=== PATIENT | male | born 1990 | race Caucasian/White ===

== ENCOUNTER 2018-02-28 08:47 | Emergency (ER) | payer SELFPAY ==
[~2018-02-28] VITALS: Ht 177.8 cm; Wt 81.7 kg
[~2018-02-28 08:47] MED LIST: CYCL10 PO; Cyclobenzaprine5 MG PO; IBUP800 PO; METPRE4DP PO; Norco 10-325 T1 EACH PO; Norco 5-325 Ta1 EACH PO; RXPROM25 PO
[2018-02-28 09:18] LABS: BASOPHILS ABSOLUTE AUTO 0.06 K/mm3 (0.00-0.23); BASOPHILS PERCENT AUTO 1 % (0-2); EOSINOPHILS PERCENT AUTO 6 % (0-6); Hematocrit 38.2 % (37.0-53.0); Hemoglobin 12.9 g/dL (13.5-17.5); IMMATURE GRAN ABSOLUTE AUTO 0.01 K/mm3 (0.00-0.10); IMMATURE GRAN PERCENT AUTO 0 % (0-1); LYMPHOCYTES ABSOLUTE AUTO 2.06 K/mm3 (0.84-5.20); LYMPHOCYTES PERCENT AUTO 33 % (21-46); MONOCYTES ABSOLUTE AUTO 0.49 K/mm3 (0.16-1.47); MONOCYTES PERCENT AUTO 8 % (4-13); Mean Corpuscular HGB 30.2 pg (26.0-34.0); Mean Corpuscular HGB Conc 33.8 g/dL (31.5-36.5); Mean Corpuscular Volume 90 fL (80-100); Mean Platelet Volume 9.3 fL (9.1-12.4); NEUTROPHILS ABSOLUTE AUTO 3.27 K/mm3 (1.96-9.15); NEUTROPHILS PERCENT AUTO 52 % (41-73); Platelet Count 288 K/mm3 (150-400); RDW Coefficient Variation 12.6 % (11.7-14.2); RDW Standard Deviation 41.1 fL (35.1-46.3); Red Blood Cell Count 4.27 M/mm3 (4.30-5.90); White Blood Cell Count 6.29 K/mm3 (4.00-11.30)
[2018-02-28 09:37] LABS: Alanine Aminotransfer (ALT/SGP 24 U/L (12-78); Albumin, Blood 3.4 g/dL (3.4-5.0); Alk Phos 61 U/L (50-136); Anion Gap 7 mmol/L (6-16); Aspartate Aminotrans (AST/SGOT 15 U/L (12-37); Bilirubin, Total 0.4 mg/dL (0.1-1.0); Blood Urea Nitrogen 6 mg/dL (8-24); Bun/Creatinine Ratio 8.3 (12.0-20.0); CO2, Blood 25 mmol/L (21-32); Calcium, Blood 8.2 mg/dL (8.5-10.1); Chloride, Blood 109 mmol/L (98-108); Creatinine, Blood 0.72 mg/dL (0.60-1.20); Globulin, Blood 3.3 g/dL (2.2-4.0); Glomerular Filtration Rate >60 (60-); Glucose, Blood 89 mg/dL (70-99); Potassium, Blood 4.3 mmol/L (3.5-5.5); Sodium, Blood 141 mmol/L (136-145); Total Protein, Blood 6.7 g/dL (6.4-8.2); Troponin I <0.015 ng/mL (0.000-0.040)
[2018-02-28] MEDS ORDERED: IBUP800 PO (10:05)
[2018-02-28] MEDS ORDERED: Norco 10-325 T1 EACH PO (10:05)
[2018-02-28] MEDS ORDERED: CYCL10 PO (10:05)
== END 2018-02-28 10:31 | disposition home or self-care (01) ==
LOC: ER 08:47
PROVIDERS: Emergency Medicine
DX: M94.0 Chondrocostal junction syndrome [Tietze] (principal); M54.5 Low back pain; F17.220 Nicotine dependence, chewing tobacco, uncomplicated
CPT/HCPCS: 36415; 71046; 80053; 83690; 84484; 85025; 93005; 93010; 96361; 96374; 96375; 99285-25; J2405; J3010; J7030

== ENCOUNTER 2018-10-13 14:38 | Emergency (ER) | payer SELFPAY ==
[~2018-10-13] VITALS: Ht 182.9 cm; Wt 82.5 kg
== END 2018-10-13 16:38 | disposition home or self-care (01) ==
LOC: ER 14:38
DX: F07.81 Postconcussional syndrome (principal); Z79.899 Other long term (current) drug therapy
CPT/HCPCS: 99283

== ENCOUNTER 2021-07-31 15:33 | Inpatient (IN) | payer OTHER ==
[~2021-07-31] VITALS: Ht 175.3 cm; Wt 79.8 kg
[2021-07-31 16:11] LABS: BASOPHILS ABSOLUTE AUTO 0.04 K/mm3 (0.00-0.23); BASOPHILS PERCENT AUTO 0 % (0-2); EOSINOPHILS ABSOLUTE AUTO 0.17 K/mm3 (0.00-0.68); EOSINOPHILS PERCENT AUTO 1 % (0-6); Hematocrit 36.3 % (37.0-53.0); Hemoglobin 12.1 g/dL (13.5-17.5); IMMATURE GRAN ABSOLUTE AUTO 0.05 K/mm3 (0.00-0.10); IMMATURE GRAN PERCENT AUTO 0 % (0-1); LYMPHOCYTES PERCENT AUTO 23 % (21-46); MONOCYTES ABSOLUTE AUTO 1.22 K/mm3 (0.16-1.47); MONOCYTES PERCENT AUTO 8 % (4-13); Mean Corpuscular HGB 29.6 pg (26.0-34.0); Mean Corpuscular HGB Conc 33.3 g/dL (31.5-36.5); Mean Corpuscular Volume 89 fL (80-100); NEUTROPHILS ABSOLUTE AUTO 10.16 K/mm3 (1.96-9.15); NEUTROPHILS PERCENT AUTO 68 % (41-73); Platelet Count 375 K/mm3 (150-400); RDW Coefficient Variation 12.9 % (11.7-14.2); RDW Standard Deviation 42.1 fL (35.1-46.3); Red Blood Cell Count 4.09 M/mm3 (4.30-5.90); White Blood Cell Count 15.04 K/mm3 (4.00-11.30)
[2021-07-31 16:38] LABS: Alanine Aminotransfer (ALT/SGP 21 U/L (12-78); Albumin, Blood 3.1 g/dL (3.4-5.0); Albumin/Globulin Ratio 0.9 (0.8-1.8); Alk Phos 82 U/L (50-136); Anion Gap 5 mmol/L (6-16); Aspartate Aminotrans (AST/SGOT 16 U/L (12-37); Bilirubin, Total 0.8 mg/dL (0.1-1.0); Blood Urea Nitrogen 10 mg/dL (8-24); Bun/Creatinine Ratio 11.3 (12.0-20.0); CO2, Blood 28 mmol/L (21-32); Calcium, Blood 8.2 mg/dL (8.5-10.1); Chloride, Blood 102 mmol/L (98-108); Creatinine, Blood 0.89 mg/dL (0.60-1.20); Globulin, Blood 3.4 g/dL (2.2-4.0); Glomerular Filtration Rate >60 (60-); Glucose, Blood 85 mg/dL (70-99); Potassium, Blood 3.6 mmol/L (3.5-5.5); Sodium, Blood 135 mmol/L (136-145); Total Protein, Blood 6.5 g/dL (6.4-8.2)
--- NOTE | 2021-08-01 04:33 | NUR ---
SHIFT SUMMARY 30 YR M ADMITTED ON 07/31/21 FOR CELLULITIS OF THE LEFT FOREARM. PT IS NPO AFTER MIDNIGHT AND IS SCHEDULED FOR I & D AT 1230 ON 08/01/21. PT HAD AN UNEVENTFUL EVENING AND SLEPT MOST OF THE NIGHT.
[2021-08-01 05:27] LABS: BASOPHILS ABSOLUTE AUTO 0.06 K/mm3 (0.00-0.23); BASOPHILS PERCENT AUTO 0 % (0-2); EOSINOPHILS ABSOLUTE AUTO 0.18 K/mm3 (0.00-0.68); EOSINOPHILS PERCENT AUTO 1 % (0-6); Hematocrit 37.2 % (37.0-53.0); Hemoglobin 12.1 g/dL (13.5-17.5); IMMATURE GRAN ABSOLUTE AUTO 0.05 K/mm3 (0.00-0.10); IMMATURE GRAN PERCENT AUTO 0 % (0-1); LYMPHOCYTES ABSOLUTE AUTO 2.78 K/mm3 (0.84-5.20); LYMPHOCYTES PERCENT AUTO 17 % (21-46); MONOCYTES ABSOLUTE AUTO 1.68 K/mm3 (0.16-1.47); MONOCYTES PERCENT AUTO 11 % (4-13); Mean Corpuscular HGB 29.5 pg (26.0-34.0); Mean Corpuscular HGB Conc 32.5 g/dL (31.5-36.5); Mean Corpuscular Volume 91 fL (80-100); Mean Platelet Volume 9.6 fL (9.1-12.4); NEUTROPHILS ABSOLUTE AUTO 11.23 K/mm3 (1.96-9.15); NEUTROPHILS PERCENT AUTO 70 % (41-73); Platelet Count 366 K/mm3 (150-400); RDW Standard Deviation 43.4 fL (35.1-46.3); White Blood Cell Count 15.98 K/mm3 (4.00-11.30)
[2021-08-01 06:06] LABS: Anion Gap 6 mmol/L (6-16); Blood Urea Nitrogen 8 mg/dL (8-24); Bun/Creatinine Ratio 10.3 (12.0-20.0); CO2, Blood 25 mmol/L (21-32); Chloride, Blood 103 mmol/L (98-108); Creatinine, Blood 0.77 mg/dL (0.60-1.20); Glomerular Filtration Rate >60 (60-); Glucose, Blood 89 mg/dL (70-99); Potassium, Blood 4.1 mmol/L (3.5-5.5); Sodium, Blood 134 mmol/L (136-145)
--- NOTE | 2021-08-01 08:00 | NUR ---
PT PLEASANT COOP VERY HARD TO AWAKEN. HE IS A/O X3, STATES DOES SLEEP HARD. H/R REG, NO MURMER NOTED. PER TELE NSR AT 86. NO EDEMA NOTED EXCEPT AT LEFT ARM CELLULITIS. LUNGS CLEAR, RESP EASY, UNLABORED. ON R.A. BT X4 LAST BM YEST PER PT. VOIDS IND TO BATHROOM. PT L ARM IS SWOLLEN, RED, WARM. PENDING I&D THIS NOON. BED IN LOW POSITION, CALL LITE IN REACH, CALLS APPROP
[2021-08-01 11:25] LABS: Influenza A, PCR NEGATIVE (NEGATIVE); Influenza B, PCR NEGATIVE (NEGATIVE); Resp Syncytial Virus, PCR NEGATIVE (NEGATIVE); SARS-Cov-2 (COVID-19) PCR, MMC NEGATIVE (NEGATIVE)
--- NOTE | 2021-08-01 11:49 | NUR ---
to day surg at 1150
[2021-08-01 13:23] LABS: U Amphetamine Screen DETECTED; U Barbituate Screen Not Detected; U Benzodiazapine Screen Not Detected; U Buprenorphine Screen Not Detected; U Cannabinoids Screen Not Detected; U Cocaine Screen Not Detected; U Methadone Screen Not Detected; U Methamphetamine Screen DETECTED; U Opiates Screen Not Detected; U Oxycodone Screen Not Detected; U Phencyclidine Screen Not Detected; U Propoxyphene Screen Not Detected
--- NOTE | 2021-08-01 17:36 | NUR ---
PT IS QUITE PLEASANT COOP A/O. TALKATIVE. NO C/O PAIN SO FAR FROM SURGERY. MOM IN ROOM ASSISTING WITH OPENING HIS DINNER TRAY, ETC. REMINDS HIM TO USE I/S Q10 MIN. BOTH REMAIN PLEASANT AND COOP. L ARM IS STILL RED, BUT WRAPPED UPPER ARM TO HAND. PULSES FELT. CAP REFILL ABOUT 3 SEC. PT AMBULATING TO BATHROOM. PT WAS SEEN BP PT/OT. VOICED NO CONCERNS TO ME ABOUT HAND. IVF D/C. BED IN LOW POSITION, CALL LITE IN REACH, CALLS APPROP
--- NOTE | 2021-08-01 19:23 | NUR ---
RECEIVED REPORT AND ASSUMED CARE OF PT. HE IS LYING QUIETLY IN BED WITH HIS EYES CLOSED AND EVEN, UNLABORED MILDLY SONOROUS RESPIRATIONS. CALL LIGHT IN REACH. TM.
--- NOTE | 2021-08-02 05:14 | NUR ---
SHIFT SUMMARY: GIOVANA IS A&OX4. VSS, NO ACUTE EVENTS OVERNIGHT. LEFT HAND SWELLING IMPROVED AFTER TORADOL, ICE AND ELEVATION. HE REPORTS ADEQUATE PAIN CONTROL WITH APAP AND TORADOL. HE IS INDEPENDENT TO THE BATHROOM, IV TO R HAND PATENT, TOLERATING PO INTAKE WELL, USES THE CALL LIGHT APPROPRIATELY. HIMANSHU WRAP TO L ARM C/D&I. HE IS LYING IN BED WITH THE CALL LIGHT IN REACH. WILL REPORT TO DAY SHIFT RN.
[2021-08-02 05:15] LABS: BASOPHILS ABSOLUTE AUTO 0.03 K/mm3 (0.00-0.23); BASOPHILS PERCENT AUTO 0 % (0-2); EOSINOPHILS PERCENT AUTO 1 % (0-6); Hematocrit 32.1 % (37.0-53.0); Hemoglobin 10.7 g/dL (13.5-17.5); IMMATURE GRAN ABSOLUTE AUTO 0.07 K/mm3 (0.00-0.10); IMMATURE GRAN PERCENT AUTO 1 % (0-1); LYMPHOCYTES ABSOLUTE AUTO 2.01 K/mm3 (0.84-5.20); LYMPHOCYTES PERCENT AUTO 13 % (21-46); MONOCYTES ABSOLUTE AUTO 1.43 K/mm3 (0.16-1.47); MONOCYTES PERCENT AUTO 9 % (4-13); Mean Corpuscular HGB 29.6 pg (26.0-34.0); Mean Corpuscular HGB Conc 33.3 g/dL (31.5-36.5); Mean Corpuscular Volume 89 fL (80-100); Mean Platelet Volume 9.4 fL (9.1-12.4); NEUTROPHILS ABSOLUTE AUTO 11.66 K/mm3 (1.96-9.15); NEUTROPHILS PERCENT AUTO 76 % (41-73); Platelet Count 359 K/mm3 (150-400); RDW Coefficient Variation 12.7 % (11.7-14.2); RDW Standard Deviation 41.5 fL (35.1-46.3); Red Blood Cell Count 3.62 M/mm3 (4.30-5.90)
[2021-08-02 05:54] LABS: Albumin, Blood 2.5 g/dL (3.4-5.0); Anion Gap 5 mmol/L (6-16); Blood Urea Nitrogen 9 mg/dL (8-24); Bun/Creatinine Ratio 13.4 (12.0-20.0); CO2, Blood 27 mmol/L (21-32); Calcium, Blood 8.2 mg/dL (8.5-10.1); Chloride, Blood 109 mmol/L (98-108); Creatinine, Blood 0.67 mg/dL (0.60-1.20); Glomerular Filtration Rate >60 (60-); Glucose, Blood 120 mg/dL (70-99); Phosphorus, Blood 3.4 mg/dL (2.5-4.9); Potassium, Blood 4.1 mmol/L (3.5-5.5); Sodium, Blood 141 mmol/L (136-145)
--- NOTE | 2021-08-02 08:00 | NUR ---
PT A/O X3 PLEASANT COOP. DENIES PAIN AT THIS TIME. H/R REG, NO MURMER NOTED. PER TELE. NSR AT 70. LUNGS ARE CLEAR T/O AND IS ON R/A AT THIS TIME. RESP EASY, UNLABORED. BT X4 LAST BM YEST. VOIDS INDEPENDANT TO BATHROOM. LEFT ARM ON PILLOWS, ELEVATED. CURRENTLY WRAPPED PER . PULSE FELT AT WRIST. CAP REFILL 3 SEC. HAND IS SOMEWHAT RED, COOL. MOVES FINGERS WELL. DENIES N/T. STATES IS BETTER THAN YEST. BED IN LOW POSITION, CALL LITE IN REACH, CALLS APPROP
--- NOTE | 2021-08-02 14:29 | NUR ---
PATIENT GAVE VERBAL PERMISSION TO HELP TAKE CARE OF HIM TO THIS GROVE SUPERINTENDENT
--- NOTE | 2021-08-02 15:51 | NUR ---
Met pt. lying in bed talking with a family member on visit, pt. reports doing much bettewr encouraged pt. and offered prayers and spiritual support.
--- NOTE | 2021-08-02 18:28 | NUR ---
PT PLEASANT COOP CHEERFUL.. NO C/O PAIN TODAY. ARM ELEVATED PER DR ORDERS. VERY SLIGHT DRAINAGE NOTED THIS DAPHNE. DR WAS IN TODAY AND STATES TO REDRESS TOMORROW. NO NEW CONCERNS NOTED. REDNESS AND SWELLING REDUCING EXPECTED. PT DENIES N/T. BED IN LOW POSITION, CALL LITE IN REACH, CALLS APPROP
[2021-08-03 04:48] LABS: BASOPHILS ABSOLUTE AUTO 0.06 K/mm3 (0.00-0.23); BASOPHILS PERCENT AUTO 1 % (0-2); EOSINOPHILS ABSOLUTE AUTO 0.34 K/mm3 (0.00-0.68); EOSINOPHILS PERCENT AUTO 4 % (0-6); Hematocrit 33.3 % (37.0-53.0); IMMATURE GRAN ABSOLUTE AUTO 0.03 K/mm3 (0.00-0.10); IMMATURE GRAN PERCENT AUTO 0 % (0-1); LYMPHOCYTES ABSOLUTE AUTO 3.56 K/mm3 (0.84-5.20); LYMPHOCYTES PERCENT AUTO 37 % (21-46); MONOCYTES ABSOLUTE AUTO 0.82 K/mm3 (0.16-1.47); MONOCYTES PERCENT AUTO 9 % (4-13); Mean Corpuscular HGB 29.4 pg (26.0-34.0); Mean Corpuscular Volume 89 fL (80-100); Mean Platelet Volume 9.1 fL (9.1-12.4); NEUTROPHILS ABSOLUTE AUTO 4.86 K/mm3 (1.96-9.15); NEUTROPHILS PERCENT AUTO 50 % (41-73); Platelet Count 432 K/mm3 (150-400); RDW Coefficient Variation 12.8 % (11.7-14.2); RDW Standard Deviation 41.7 fL (35.1-46.3); Red Blood Cell Count 3.74 M/mm3 (4.30-5.90); White Blood Cell Count 9.67 K/mm3 (4.00-11.30)
[2021-08-03 05:28] LABS: Percent Saturation 17.1 % (20.0-50.0)
--- NOTE | 2021-08-03 06:14 | NUR ---
SHIFT SUMMARY: A&OX4, COOPERATIVE AND PLEASANT. NO COMPLAINTS OF PAIN. LCTA. E/U RESP. NO ADVENTIOUS HEART SOUNDS. BOWEL TONES ACTIVE X 4 QUADARNTS. PATIENT REPORTS 2X BM 08/02. RUE WITH ERRYTHEMA AND EDEMA TO HAND. CAP REFILL 2 SECONDS. PATIENT DENIES NUMBNESS. HIMANSHU BANDAGE WITH SHADOWING PER DAY RN BANDAGE NOT TO BE REMOVED ONLY REINFORCED WHEN SATURATED. WCTM.
[2021-08-03] MEDS ORDERED: VISBIOME 112.51 EACH PO (13:31)
[2021-08-03] MEDS ORDERED: APHEN325 MG PO (13:31)
[2021-08-03] MEDS ORDERED: IBUP400 PO (13:32)
[2021-08-03] MEDS ORDERED: [UNRECOGNIZED DRUG - OTHER] PO (13:32)
[2021-08-03] MEDS ORDERED: BACTRIM DS TAB1 EAC6 PO (13:33)
--- NOTE | 2021-08-03 14:59 | NUR ---
Pt. in bed talkin with Mom he resport to be doing much better and may going home today or next.Encouraged pt and offered prayers.
--- NOTE | 2021-08-03 15:07 | NUR ---
DISCHARGE SUMMARY POD#1 FOR I&D OF L ELBOW. DRESSING WAS CHANGED BY DR. EDUARDO. GAUZE AND HIMANSHU WRAP DRESSING IN PLACE, CDI. PT WAS REFERRED TO [facility], SPOKE WITH THE WOUND CLINIC AND FOUND THAT THEY DO NOT PROVIDE DAILY DRESSING CHANGES. EDUCATED PT'S MOTHER ON WOUND CARE AND SHE VERBALIZED THAT SHE IS WILLING TO CHANGE THE DRESSING DAILY. WOUND CLINIC REFERRAL NO LONGER NEEDED. PT DC'D HOME WITH MOM.
== END 2021-08-03 15:07 | disposition home or self-care (01) | DRG 854 ==
LOC: ER 15:33 → MEDS 21:27
PROVIDERS: Internal Medicine; Orthopaedic Surgery; Physician Assistant; ADMIT Family Medicine
PROC: 0K9B0ZZ Drainage of Left Lower Arm and Wrist Muscle, Open Approach (ICD-10-PCS; principal; 2021-08-01 12:30)
DX: A41.01 Sepsis due to Methicillin susceptible Staphylococcus aureus (principal); E87.1 Hypo-osmolality and hyponatremia; L03.114 Cellulitis of left upper limb; L02.414 Cutaneous abscess of left upper limb; M60.032 Infective myositis, left forearm; Z20.822 Contact with and (suspected) exposure to COVID-19; D50.9 Iron deficiency anemia, unspecified; F17.210 Nicotine dependence, cigarettes, uncomplicated; F15.90 Other stimulant use, unspecified, uncomplicated; Z98.890 Other specified postprocedural states; D72.828 Other elevated white blood cell count
CPT/HCPCS: 0241U; 36415; 73201; 80048; 80053; 80069; 82607; 82728; 82746; 83540; 83550; 83605; 85025; 85027; 87040; 87070; 87075; 87077; 87147; 87186; 87205; 90686; 96365-59; 96366-59; 96367-59; 96375-59; 97110; 97165; 99285-25; A9270; G0008; J0330; J0690; J1100; J1170; J1885; J2405; J2704; J3010; J3370; J7050; J7120; Q9967

== ENCOUNTER → 2022-01-20 | Outpatient (CLI) | payer OTHER ==
[~2022-01-20] MED LIST changes: +APHEN325 MG PO; +BACTRIM DS TAB1 EAC6 PO; +CEPH500 PO; +IBUP400 PO; +SULTRIDS PO; +VISBIOME 112.51 EACH PO; +[UNRECOGNIZED DRUG - OTHER] PO
== END | disposition home or self-care (01) ==
LOC: LAB SHORT 18:30 → LAB 18:30
DX: L08.9 Local infection of the skin and subcutaneous tissue, unspecified (principal)
CPT/HCPCS: 87070; 87077; 87147; 87186; 87205

== ENCOUNTER 2022-03-04 09:34 | Emergency (ER) | payer OTHER ==
[~2022-03-04] VITALS: Ht 177.8 cm; Wt 78.9 kg
[~2022-03-04 09:34] MED LIST changes: -CEPH500 PO; -SULTRIDS PO
[2022-03-04] MEDS ORDERED: SULTRIDS PO (12:46)
[2022-03-04] MEDS ORDERED: CEPH500 PO (12:46)
== END 2022-03-04 12:53 | disposition home or self-care (01) ==
LOC: ER 09:34
DX: L03.012 Cellulitis of left finger (principal); F17.210 Nicotine dependence, cigarettes, uncomplicated
CPT/HCPCS: J1885

== ENCOUNTER 2022-04-26 09:14 | Emergency (ER) | payer OTHER ==
[~2022-04-26] VITALS: Ht 180.3 cm; Wt 82.5 kg
[~2022-04-26 09:14] MED LIST changes: +CEPH500 PO; +SULTRIDS PO
[2022-04-26] MEDS ORDERED: CEPH500 PO (10:19)
== END 2022-04-26 10:33 | disposition home or self-care (01) ==
LOC: ER 09:14
DX: L08.89 Other specified local infections of the skin and subcutaneous tissue (principal); F17.210 Nicotine dependence, cigarettes, uncomplicated
CPT/HCPCS: 99283

== ENCOUNTER 2023-02-09 14:13 | Emergency (ER) | payer OTHER ==
[~2023-02-09] VITALS: Ht 180.3 cm; Wt 90.3 kg
[2023-02-09 14:33] VITALS: BP 163/104
[2023-02-09] MEDS ORDERED: Bactrim Ds Tab1 EACH PO (14:33)
== END 2023-02-09 14:35 | disposition home or self-care (01) ==
LOC: ER 14:13
DX: J34.0 Abscess, furuncle and carbuncle of nose (principal); F17.210 Nicotine dependence, cigarettes, uncomplicated
CPT/HCPCS: 99282

== ENCOUNTER 2023-12-16 14:29 | Emergency (ER) | payer OTHER ==
[~2023-12-16] VITALS: Ht 175.3 cm; Wt 81.2 kg
[~2023-12-16 14:29] MED LIST changes: +Bactrim Ds Tab1 EACH PO
[2023-12-16 15:06] LABS: BASOPHILS ABSOLUTE AUTO 0.07 K/mm3 (0.00-0.23); BASOPHILS PERCENT AUTO 1 % (0-2); EOSINOPHILS ABSOLUTE AUTO 0.29 K/mm3 (0.00-0.68); EOSINOPHILS PERCENT AUTO 3 % (0-6); Hematocrit 35.2 % (37.0-53.0); Hemoglobin 11.6 g/dL (13.5-17.5); IMMATURE GRAN ABSOLUTE AUTO 0.33 K/mm3 (0.00-0.10); IMMATURE GRAN PERCENT AUTO 3 % (0-1); LYMPHOCYTES ABSOLUTE AUTO 3.27 K/mm3 (0.84-5.20); LYMPHOCYTES PERCENT AUTO 29 % (21-46); MONOCYTES ABSOLUTE AUTO 0.68 K/mm3 (0.16-1.47); MONOCYTES PERCENT AUTO 6 % (4-13); Mean Corpuscular HGB 29.2 pg (26.0-34.0); Mean Corpuscular Volume 89 fL (80-100); Mean Platelet Volume 8.4 fL (9.1-12.4); NEUTROPHILS ABSOLUTE AUTO 6.71 K/mm3 (1.96-9.15); NEUTROPHILS PERCENT AUTO 59 % (41-73); Platelet Count 542 K/mm3 (150-400); RDW Coefficient Variation 13.5 % (11.7-14.2); RDW Standard Deviation 43.8 fL (35.1-46.3); Red Blood Cell Count 3.97 M/mm3 (4.30-5.90); White Blood Cell Count 11.35 K/mm3 (4.00-11.30)
[2023-12-16 15:23] LABS: Albumin, Blood 3.2 g/dL (3.4-5.0); Albumin/Globulin Ratio 0.7 (0.8-1.8); Bilirubin, Total 0.2 mg/dL (0.1-1.0); Calcium, Blood 8.9 mg/dL (8.5-10.1); Creatinine, Blood 0.64 mg/dL (0.60-1.20); Globulin, Blood 4.3 g/dL (2.2-4.0); Potassium, Blood 4.1 mmol/L (3.5-5.5); Total Protein, Blood 7.5 g/dL (6.4-8.2)
[2023-12-16] MEDS ORDERED: CEPH500 PO (15:54)
[2023-12-16 16:31] VITALS: BP 116/82
== END 2023-12-16 16:35 | disposition home or self-care (01) ==
LOC: ER 14:29
PROVIDERS: Nurse Practitioner
DX: L02.415 Cutaneous abscess of right lower limb (principal); L03.115 Cellulitis of right lower limb; F17.210 Nicotine dependence, cigarettes, uncomplicated
CPT/HCPCS: 80053; 83605; 85025; 99283

== ENCOUNTER 2024-09-10 00:13 | Emergency (ER) | payer OTHER ==
[~2024-09-10] VITALS: Ht 180.3 cm; Wt 83.5 kg
[2024-09-10 00:33] VITALS: BP 154/105
[2024-09-10] MEDS ORDERED: Ibuprofen 600 MG Tab PO ONE (00:55)
[2024-09-10] MEDS ORDERED: Acetaminophen 500 MG Tab PO ONE (00:55)
== END 2024-09-10 01:09 | disposition home or self-care (01) ==
LOC: ER 00:13
DX: S60.032A Contusion of left middle finger without damage to nail, initial encounter (principal); W22.8XXA Striking against or struck by other objects, initial encounter; F17.200 Nicotine dependence, unspecified, uncomplicated
CPT/HCPCS: 73140; 99283-25; A9270

== ENCOUNTER 2024-09-19 02:04 | Emergency (ER) | payer OTHER ==
[~2024-09-19] VITALS: Ht 182.9 cm; Wt 86.2 kg
[2024-09-19 02:16] VITALS: BP 140/94
[2024-09-19] MEDS ORDERED: Diphth,Pertuss(Acell),Tet Vac 0.5 ML VIAL IM ONE (04:05)
[2024-09-19] MEDS ORDERED: Ibuprofen 600 MG Tab PO ONE (04:05)
[2024-09-19] MEDS ORDERED: Acetaminophen 500 MG Tab PO ONE (04:05)
[2024-09-19] MEDS ORDERED: SULTRIDS PO (04:29)
== END 2024-09-19 04:41 | disposition home or self-care (01) ==
LOC: ER 02:04
DX: L03.012 Cellulitis of left finger (principal); F17.210 Nicotine dependence, cigarettes, uncomplicated; Z23 Encounter for immunization
CPT/HCPCS: 73140; 90471; 90715; 99283-25; A9270